=== PATIENT | male | born 1965 | race Caucasian/White ===

== ENCOUNTER 2017-08-18 00:35 | Inpatient (IN) | payer OTHER ==
[~2017-08-18] VITALS: Ht 182.9 cm; Wt 85.8 kg
[2017-08-18] VITALS (9 sets, daily range): BP systolic 107–126; BP diastolic 65–72; PULSE 79–104; RESP 14–18; TEMP 97.3–103.1; O2SAT 93–97
[~2017-08-18 00:35] MED LIST: ONDANSETRON HCL 4 MG/2 ML VIAL IV PUSH PRN; SODIUM CHLORIDE 0.9% FLUSH 10 ML FLUSH IV FLUSH PRN
[2017-08-18] MEDS: MORPHINE SULFATE 4 MG/ML INJ IV PUSH PRN ×2 (01:20→05:25)
[2017-08-18] MEDS: SODIUM CHLOR 0.9% 1000 ML INJ 1,000 ML IV SCH ×4 (01:21→21:42)
[2017-08-18] MEDS ORDERED: LACTATED RINGER'S 1000 ML IV PRN (01:30)
[2017-08-18] MEDS ORDERED: INSULIN HUMAN REGULAR 1,000 UNITS/10 ML VIAL SQ PRN (01:30)
[2017-08-18] MEDS ORDERED: METOPROLOL TARTRATE 25 MG TAB PO PRN (01:30)
[2017-08-18] MEDS ORDERED: CHLORHEXIDINE GLUCONATE 2 % 1 PACK (2 CLOTHS) TOPICAL PRN (01:30)
[2017-08-18] MEDS ORDERED: SODIUM CHLORID 0.9% 500 ML IV PRN (01:30)
[2017-08-18] MEDS ORDERED: POVIDONE IODINE 5% (ANTISEPSIS KIT) 4 APPLICATIONS EACH NARE PRN (01:30)
[2017-08-18] MEDS: PIPERACIL-TAZO 3.375 GM PREMIX 50 ML IV SCH ×4 (05:25→23:18)
--- NOTE | 2017-08-18 07:09 | HHI.HP ---
HPI Service General surgery Primary Care Physician Non-Staff Admission Diagnosis Appendicitis Chief Complaint: Abdominal pain History of Present Illness The patient is a 51-year-old male who presents with acute onset of lower abdominal pain starting at 6 AM yesterday when he awoke. The pain is worse on the right lower quadrant than the left. He denies nausea or vomiting. He felt febrile at home and he had a temperature of 101 last night. No diarrhea. He reports a history of an appendectomy 10 years ago for appendicitis. He was evaluated in the emergency department and out of the and noted to have right lower quadrant tenderness associated with leukocytosis and a CT scan of the abdomen and pelvis showing acute appendicitis. Review of Systems Constitutional: COMPLAINS OF: Fever, Chills Eyes: DENIES: Eye inflammation, Eye pain Respiratory: DENIES: Cough, Shortness of breath Cardiovascular: DENIES: Chest pain, Palpitations Gastrointestinal: COMPLAINS OF: Abdominal pain, DENIES: Nausea, Vomiting Musculoskeletal: DENIES: Back pain, Neck pain Integumentary: DENIES: Pruritus, Rash Neurologic: DENIES: Paresthesias, Seizures Past Family Social History Past Medical History None Past Surgical History Laparoscopic appendectomy Reported Medications Reported Meds & Active Scripts Active No Active Prescriptions or Reported Medications Allergies: Coded Allergies: No Known Allergies (Unverified , 08/17/17) Active Ordered Medications Current Medications Medications (Trade) Dose Ordered Sig/Fam Route Start Time Stop Time Status Last Admin Sodium Chloride 1,000 ml @ 100 mls/hr Q10H IV 08/18/17 01:00 08/18/17 01:21 (NS Flush) 2 ml UNSCH PRN IV FLUSH 08/17/17 23:15 (NS Flush) 2 ml BID IV FLUSH 08/18/17 09:00 Piperacillin Sod/ Tazobactam Sod 50 ml @ 100 mls/hr Q6H IV 08/18/17 05:00 08/18/17 05:25 (Zofran Inj) 4 mg Q6H PRN IV PUSH 08/17/17 23:15 08/18/17 02:16 (Morphine Inj) 4 mg Q3H PRN IV PUSH 08/17/17 23:15 08/18/17 05:25 Lactated Ringer's 1,000 ml @ 30 mls/hr Q24H PRN IV 08/18/17 01:30 08/21/17 01:29 Sodium Chloride 500 ml @ 30 mls/hr [id number] PRN IV 08/18/17 01:30 08/21/17 01:29 (Lopressor) 25 mg DRAMATIC TEACHER PRN PO 08/18/17 01:30 08/21/17 01:29 (Betadine 5% Antisepsis Kit) 1 applic DRAMATIC TEACHER PRN EACH NARE 08/18/17 01:30 08/21/17 01:29 (Chlorhexidine 2% Cloth) 3 pack DRAMATIC TEACHER PRN TOPICAL 08/18/17 01:30 08/21/17 01:29 (NovoLIN R INJ) See Protocol Table ... DRAMATIC TEACHER PRN SQ 08/18/17 01:30 08/21/17 01:29 (Flu (Quadrivalent) Vaccine Inj) 0.5 ml ONCE ONCE IM 08/19/17 10:00 08/19/17 10:01 Family History Noncontributory Social History Occasional alcohol use. No tobacco or drug use. Physical Exam Vital Signs Vital Signs Date Time Temp Pulse Resp B/P (MAP) Pulse Ox O2 Delivery O2 Flow Rate FiO2 08/18/17 04:00 101.0 86 17 125/70 (88) 96 08/18/17 00:43 100.0 80 17 121/72 (88) 97 Physical Exam GENERAL: Awake and alert. No acute distress. Cooperative. HEAD: Normocephalic. Atraumatic. CHEST: Lungs clear to auscultation bilaterally with no wheezing or rhonchi. No respiratory distress. CARDIOVASCULAR: Regular rate and rhythm. ABDOMEN: Well-healed port site scars. Nondistended. Soft. Moderate tenderness in the right lower quadrant at McBurney's point with positive rebound. EXTREMITIES: No cyanosis or edema. SKIN: Warm, dry, nonjaundiced. Laboratory Please see labs from [place] emergency department visit. Imaging Please see imaging from [place] emergency department visit. I reviewed the CT images myself. Caprini VTE Risk Assessment Caprini VTE Risk Assessment: No/Low Risk (score <= 1) Caprini Risk Assessment Model Point Value = 1 Point Value = 2 Point Value = 3 Point Value = 5 Age 41-60 Minor surgery BMI > 25 kg/m2 Swollen legs Varicose veins or History of unexplained or recurrent spontaneous Oral contraceptives or hormone replacement Sepsis (< 1 month) Serious lung disease, including pneumonia (< 1 month) Abnormal pulmonary function Acute myocardial infarction Congestive heart failure (< 1 month) History of inflammatory bowel disease Medical patient at bed rest Age 61-74 Arthroscopic surgery Major open surgery (> 45 min) Laparoscopic surgery (> 45 min) Malignancy Confined to bed (> 72 hours) Immobilizing plaster cast Central venous access Age >= 75 History of VTE Family history of VTE Factor V Leiden Prothrombin [id number] Lupus anticoagulant Anticardiolipin antibodies Elevated serum homocysteine Heparin-induced thrombocytopenia Other congenital or acquired thrombophilia Stroke (< 1 month) Elective arthroplasty Hip, pelvis, or leg fracture Acute spinal cord injury (< 1 month) Prophylaxis Regimen Total Risk Factor Score Risk Level Prophylaxis Regimen 0-1 Low Early ambulation 2 Moderate Order ONE of the following: *Sequential Compression Device (SCD) *Heparin 5000 units SQ BID 3-4 Higher Order ONE of the following medications: *Heparin 5000 units SQ TID *Enoxaparin/Lovenox 40 mg SQ daily (WT < 150 kg, CrCl > 30 mL/min) *Enoxaparin/Lovenox 30 mg SQ daily (WT < 150 kg, CrCl > 10-29 mL/min) *Enoxaparin/Lovenox 30 mg SQ BID (WT < 150 kg, CrCl > 30 mL/min) AND/OR *Sequential Compression Device (SCD) 5 or more Highest Order ONE of the following medications: *Heparin 5000 units SQ TID (Preferred with Epidurals) *Enoxaparin/Lovenox 40 mg SQ daily (WT < 150 kg, CrCl > 30 mL/min) *Enoxaparin/Lovenox 30 mg SQ daily (WT < 150 kg, CrCl > 10-29 mL/min) *Enoxaparin/Lovenox 30 mg SQ BID (WT < 150 kg, CrCl > 30 mL/min) AND *Sequential Compression Device (SCD) Assessment and Plan Assessment and Plan 51-year-old male who has evaluation consistent with appendicitis. He has had a previous appendectomy. I think he may have a stump appendicitis. Another possibility is Meckel's diverticulitis. I discussed both of these possibilities with him. I recommend to proceed to the operating room for laparoscopy and treatment of appendicitis or Meckel's. I discussed surgery in detail with the patient and he understands and desires to proceed. Tommy,Sabino STEINER Aug 18, 2017 07:09
--- NOTE | 2017-08-18 07:09 | HHI.HP ---
HPI Service General surgery Primary Care Physician Non-Staff Admission Diagnosis Appendicitis Chief Complaint: Abdominal pain History of Present Illness The patient is a 51-year-old male who presents with acute onset of lower abdominal pain starting at 6 AM yesterday when he awoke. The pain is worse on the right lower quadrant than the left. He denies nausea or vomiting. He felt febrile at home and he had a temperature of 101 last night. No diarrhea. He reports a history of an appendectomy 10 years ago for appendicitis. He was evaluated in the emergency department and out of the and noted to have right lower quadrant tenderness associated with leukocytosis and a CT scan of the abdomen and pelvis showing acute appendicitis. Review of Systems Constitutional: COMPLAINS OF: Fever, Chills Eyes: DENIES: Eye inflammation, Eye pain Respiratory: DENIES: Cough, Shortness of breath Cardiovascular: DENIES: Chest pain, Palpitations Gastrointestinal: COMPLAINS OF: Abdominal pain, DENIES: Nausea, Vomiting Musculoskeletal: DENIES: Back pain, Neck pain Integumentary: DENIES: Pruritus, Rash Neurologic: DENIES: Paresthesias, Seizures Past Family Social History Past Medical History None Past Surgical History Laparoscopic appendectomy Reported Medications Reported Meds & Active Scripts Active No Active Prescriptions or Reported Medications Allergies: Coded Allergies: No Known Allergies (Unverified , 08/17/17) Active Ordered Medications Current Medications Medications (Trade) Dose Ordered Sig/Fam Route Start Time Stop Time Status Last Admin Sodium Chloride 1,000 ml @ 100 mls/hr Q10H IV 08/18/17 01:00 08/18/17 01:21 (NS Flush) 2 ml UNSCH PRN IV FLUSH 08/17/17 23:15 (NS Flush) 2 ml BID IV FLUSH 08/18/17 09:00 Piperacillin Sod/ Tazobactam Sod 50 ml @ 100 mls/hr Q6H IV 08/18/17 05:00 08/18/17 05:25 (Zofran Inj) 4 mg Q6H PRN IV PUSH 08/17/17 23:15 08/18/17 02:16 (Morphine Inj) 4 mg Q3H PRN IV PUSH 08/17/17 23:15 08/18/17 05:25 Lactated Ringer's 1,000 ml @ 30 mls/hr Q24H PRN IV 08/18/17 01:30 08/21/17 01:29 Sodium Chloride 500 ml @ 30 mls/hr [id number] PRN IV 08/18/17 01:30 08/21/17 01:29 (Lopressor) 25 mg WAGE AND SALARY SPECIALIST PRN PO 08/18/17 01:30 08/21/17 01:29 (Betadine 5% Antisepsis Kit) 1 applic WAGE [employer] SALARY SPECIALIST PRN EACH NARE 08/18/17 01:30 08/21/17 01:29 (Chlorhexidine 2% Cloth) 3 pack WAGE [employer] SALARY SPECIALIST PRN TOPICAL 08/18/17 01:30 08/21/17 01:29 (NovoLIN R INJ) See Protocol Table ... WAGE AND SALARY SPECIALIST PRN SQ 08/18/17 01:30 08/21/17 01:29 (Flu (Quadrivalent) Vaccine Inj) 0.5 ml ONCE ONCE IM 08/19/17 10:00 08/19/17 10:01 Family History Noncontributory Social History Occasional alcohol use. No tobacco or drug use. Physical Exam Vital Signs Vital Signs Date Time Temp Pulse Resp B/P (MAP) Pulse Ox O2 Delivery O2 Flow Rate FiO2 08/18/17 04:00 101.0 86 17 125/70 (88) 96 08/18/17 00:43 100.0 80 17 121/72 (88) 97 Physical Exam GENERAL: Awake and alert. No acute distress. Cooperative. HEAD: Normocephalic. Atraumatic. CHEST: Lungs clear to auscultation bilaterally with no wheezing or rhonchi. No respiratory distress. CARDIOVASCULAR: Regular rate and rhythm. ABDOMEN: Well-healed port site scars. Nondistended. Soft. Moderate tenderness in the right lower quadrant at McBurney's point with positive rebound. EXTREMITIES: No cyanosis or edema. SKIN: Warm, dry, nonjaundiced. Laboratory Please see labs from [place] emergency department visit. Imaging Please see imaging from [place] emergency department visit. I reviewed the CT images myself. Caprini VTE Risk Assessment Caprini VTE Risk Assessment: No/Low Risk (score <= 1) Caprini Risk Assessment Model Point Value = 1 Point Value = 2 Point Value = 3 Point Value = 5 Age 41-60 Minor surgery BMI > 25 kg/m2 Swollen legs Varicose veins or History of unexplained or recurrent spontaneous Oral contraceptives or hormone replacement Sepsis (< 1 month) Serious lung disease, including pneumonia (< 1 month) Abnormal pulmonary function Acute myocardial infarction Congestive heart failure (< 1 month) History of inflammatory bowel disease Medical patient at bed rest Age 61-74 Arthroscopic surgery Major open surgery (> 45 min) Laparoscopic surgery (> 45 min) Malignancy Confined to bed (> 72 hours) Immobilizing plaster cast Central venous access Age >= 75 History of VTE Family history of VTE Factor V Leiden Prothrombin [id number] Lupus anticoagulant Anticardiolipin antibodies Elevated serum homocysteine Heparin-induced thrombocytopenia Other congenital or acquired thrombophilia Stroke (< 1 month) Elective arthroplasty Hip, pelvis, or leg fracture Acute spinal cord injury (< 1 month) Prophylaxis Regimen Total Risk Factor Score Risk Level Prophylaxis Regimen 0-1 Low Early ambulation 2 Moderate Order ONE of the following: *Sequential Compression Device (SCD) *Heparin 5000 units SQ BID 3-4 Higher Order ONE of the following medications: *Heparin 5000 units SQ TID *Enoxaparin/Lovenox 40 mg SQ daily (WT < 150 kg, CrCl > 30 mL/min) *Enoxaparin/Lovenox 30 mg SQ daily (WT < 150 kg, CrCl > 10-29 mL/min) *Enoxaparin/Lovenox 30 mg SQ BID (WT < 150 kg, CrCl > 30 mL/min) AND/OR *Sequential Compression Device (SCD) 5 or more Highest Order ONE of the following medications: *Heparin 5000 units SQ TID (Preferred with Epidurals) *Enoxaparin/Lovenox 40 mg SQ daily (WT < 150 kg, CrCl > 30 mL/min) *Enoxaparin/Lovenox 30 mg SQ daily (WT < 150 kg, CrCl > 10-29 mL/min) *Enoxaparin/Lovenox 30 mg SQ BID (WT < 150 kg, CrCl > 30 mL/min) AND *Sequential Compression Device (SCD) Assessment and Plan Assessment and Plan 51-year-old male who has evaluation consistent with appendicitis. He has had a previous appendectomy. I think he may have a stump appendicitis. Another possibility is Meckel's diverticulitis. I discussed both of these possibilities with him. I recommend to proceed to the operating room for laparoscopy and treatment of appendicitis or Meckel's. I discussed surgery in detail with the patient and he understands and desires to proceed. Tommy,Sabino STEINER Aug 18, 2017 07:09
--- NOTE | 2017-08-18 07:09 | HHI.HP ---
HPI Service General surgery Primary Care Physician Non-Staff Admission Diagnosis Appendicitis Chief Complaint: Abdominal pain History of Present Illness The patient is a 51-year-old male who presents with acute onset of lower abdominal pain starting at 6 AM yesterday when he awoke. The pain is worse on the right lower quadrant than the left. He denies nausea or vomiting. He felt febrile at home and he had a temperature of 101 last night. No diarrhea. He reports a history of an appendectomy 10 years ago for appendicitis. He was evaluated in the emergency department and out of the and noted to have right lower quadrant tenderness associated with leukocytosis and a CT scan of the abdomen and pelvis showing acute appendicitis. Review of Systems Constitutional: COMPLAINS OF: Fever, Chills Eyes: DENIES: Eye inflammation, Eye pain Respiratory: DENIES: Cough, Shortness of breath Cardiovascular: DENIES: Chest pain, Palpitations Gastrointestinal: COMPLAINS OF: Abdominal pain, DENIES: Nausea, Vomiting Musculoskeletal: DENIES: Back pain, Neck pain Integumentary: DENIES: Pruritus, Rash Neurologic: DENIES: Paresthesias, Seizures Past Family Social History Past Medical History None Past Surgical History Laparoscopic appendectomy Reported Medications Reported Meds & Active Scripts Active No Active Prescriptions or Reported Medications Allergies: Coded Allergies: No Known Allergies (Unverified , 08/17/17) Active Ordered Medications Current Medications Medications (Trade) Dose Ordered Sig/Fam Route Start Time Stop Time Status Last Admin Sodium Chloride 1,000 ml @ 100 mls/hr Q10H IV 08/18/17 01:00 08/18/17 01:21 (NS Flush) 2 ml UNSCH PRN IV FLUSH 08/17/17 23:15 (NS Flush) 2 ml BID IV FLUSH 08/18/17 09:00 Piperacillin Sod/ Tazobactam Sod 50 ml @ 100 mls/hr Q6H IV 08/18/17 05:00 08/18/17 05:25 (Zofran Inj) 4 mg Q6H PRN IV PUSH 08/17/17 23:15 08/18/17 02:16 (Morphine Inj) 4 mg Q3H PRN IV PUSH 08/17/17 23:15 08/18/17 05:25 Lactated Ringer's 1,000 ml @ 30 mls/hr Q24H PRN IV 08/18/17 01:30 08/21/17 01:29 Sodium Chloride 500 ml @ 30 mls/hr [id number] PRN IV 08/18/17 01:30 08/21/17 01:29 (Lopressor) 25 mg BOTTLE WASHER PRN PO 08/18/17 01:30 08/21/17 01:29 (Betadine 5% Antisepsis Kit) 1 applic BOTTLE WASHER PRN EACH NARE 08/18/17 01:30 08/21/17 01:29 (Chlorhexidine 2% Cloth) 3 pack BOTTLE WASHER PRN TOPICAL 08/18/17 01:30 08/21/17 01:29 (NovoLIN R INJ) See Protocol Table ... BOTTLE WASHER PRN SQ 08/18/17 01:30 08/21/17 01:29 (Flu (Quadrivalent) Vaccine Inj) 0.5 ml ONCE ONCE IM 08/19/17 10:00 08/19/17 10:01 Family History Noncontributory Social History Occasional alcohol use. No tobacco or drug use. Physical Exam Vital Signs Vital Signs Date Time Temp Pulse Resp B/P (MAP) Pulse Ox O2 Delivery O2 Flow Rate FiO2 08/18/17 04:00 101.0 86 17 125/70 (88) 96 08/18/17 00:43 100.0 80 17 121/72 (88) 97 Physical Exam GENERAL: Awake and alert. No acute distress. Cooperative. HEAD: Normocephalic. Atraumatic. CHEST: Lungs clear to auscultation bilaterally with no wheezing or rhonchi. No respiratory distress. CARDIOVASCULAR: Regular rate and rhythm. ABDOMEN: Well-healed port site scars. Nondistended. Soft. Moderate tenderness in the right lower quadrant at McBurney's point with positive rebound. EXTREMITIES: No cyanosis or edema. SKIN: Warm, dry, nonjaundiced. Laboratory Please see labs from [place] emergency department visit. Imaging Please see imaging from [place] emergency department visit. I reviewed the CT images myself. Caprini VTE Risk Assessment Caprini VTE Risk Assessment: No/Low Risk (score <= 1) Caprini Risk Assessment Model Point Value = 1 Point Value = 2 Point Value = 3 Point Value = 5 Age 41-60 Minor surgery BMI > 25 kg/m2 Swollen legs Varicose veins or History of unexplained or recurrent spontaneous Oral contraceptives or hormone replacement Sepsis (< 1 month) Serious lung disease, including pneumonia (< 1 month) Abnormal pulmonary function Acute myocardial infarction Congestive heart failure (< 1 month) History of inflammatory bowel disease Medical patient at bed rest Age 61-74 Arthroscopic surgery Major open surgery (> 45 min) Laparoscopic surgery (> 45 min) Malignancy Confined to bed (> 72 hours) Immobilizing plaster cast Central venous access Age >= 75 History of VTE Family history of VTE Factor V Leiden Prothrombin [id number] Lupus anticoagulant Anticardiolipin antibodies Elevated serum homocysteine Heparin-induced thrombocytopenia Other congenital or acquired thrombophilia Stroke (< 1 month) Elective arthroplasty Hip, pelvis, or leg fracture Acute spinal cord injury (< 1 month) Prophylaxis Regimen Total Risk Factor Score Risk Level Prophylaxis Regimen 0-1 Low Early ambulation 2 Moderate Order ONE of the following: *Sequential Compression Device (SCD) *Heparin 5000 units SQ BID 3-4 Higher Order ONE of the following medications: *Heparin 5000 units SQ TID *Enoxaparin/Lovenox 40 mg SQ daily (WT < 150 kg, CrCl > 30 mL/min) *Enoxaparin/Lovenox 30 mg SQ daily (WT < 150 kg, CrCl > 10-29 mL/min) *Enoxaparin/Lovenox 30 mg SQ BID (WT < 150 kg, CrCl > 30 mL/min) AND/OR *Sequential Compression Device (SCD) 5 or more Highest Order ONE of the following medications: *Heparin 5000 units SQ TID (Preferred with Epidurals) *Enoxaparin/Lovenox 40 mg SQ daily (WT < 150 kg, CrCl > 30 mL/min) *Enoxaparin/Lovenox 30 mg SQ daily (WT < 150 kg, CrCl > 10-29 mL/min) *Enoxaparin/Lovenox 30 mg SQ BID (WT < 150 kg, CrCl > 30 mL/min) AND *Sequential Compression Device (SCD) Assessment and Plan Assessment and Plan 51-year-old male who has evaluation consistent with appendicitis. He has had a previous appendectomy. I think he may have a stump appendicitis. Another possibility is Meckel's diverticulitis. I discussed both of these possibilities with him. I recommend to proceed to the operating room for laparoscopy and treatment of appendicitis or Meckel's. I discussed surgery in detail with the patient and he understands and desires to proceed. Tommy,Sabino STEINER Aug 18, 2017 07:09
[2017-08-18] MEDS ORDERED: BUPIVACAINE/EPINEPHRINE 0.5% 50 ML VIAL ONE (08:52)
[2017-08-18] MEDS: SODIUM CHLORIDE 0.9% FLUSH 10 ML FLUSH IV FLUSH SCH ×2 (09:00→20:35)
[2017-08-18] MEDS ORDERED: ACETAMINOPHEN 1000 MG/100 ML VIAL IV ONE (09:45)
[2017-08-18] MEDS ORDERED: ACETAMINOPHEN 1000 MG/100 ML 0 ML IV ONE (10:33)
[2017-08-18] MEDS ORDERED: ACETAMINOPHEN/HYDROcodone 325 MG/5 MG TAB PO PRN (12:45)
[2017-08-18] MEDS ORDERED: DO NOT ADM ANY ANTICOAGULANT DRUGS PRN (12:58)
--- NOTE | 2017-08-18 13:16 | EKG ---
Date Performed: 08/18/2017 Time Performed: 02:02:42 PTAGE: 51 years EKG: Sinus rhythm Normal ECG NO PREVIOUS TRACING DOCTOR: Renzo Cancino Interpretating Date/Time 08/18/2017 13:14:40
--- NOTE | 2017-08-18 13:16 | EKG ---
Date Performed: 08/18/2017 Time Performed: 02:02:42 PTAGE: 51 years EKG: Sinus rhythm Normal ECG NO PREVIOUS TRACING DOCTOR: Renzo Cancino Interpretating Date/Time 08/18/2017 13:14:40
--- NOTE | 2017-08-18 13:16 | EKG ---
Date Performed: 08/18/2017 Time Performed: 02:02:42 PTAGE: 51 years EKG: Sinus rhythm Normal ECG NO PREVIOUS TRACING DOCTOR: Renzo Cancino Interpretating Date/Time 08/18/2017 13:14:40
[2017-08-18] MEDS: ACETAMINOPHEN/HYDROcodone 325 MG/5 MG TAB PO PRN (16:13)
[2017-08-19] MEDS: ACETAMINOPHEN/HYDROcodone 325 MG/5 MG TAB PO PRN ×3 (02:14→13:25)
[2017-08-19 03:15] VITALS: BP 107/64; PULSE 65; RESP 18; TEMP 97.9; O2SAT 96
[2017-08-19] MEDS: PIPERACIL-TAZO 3.375 GM PREMIX 50 ML IV SCH ×2 (05:13→13:25)
[2017-08-19 08:00] VITALS: BP 100/58; PULSE 62; RESP 18; TEMP 97.9; O2SAT 97
[2017-08-19] MEDS: SODIUM CHLORIDE 0.9% FLUSH 10 ML FLUSH IV FLUSH SCH (08:38)
--- NOTE | 2017-08-19 08:58 | PD.OP ---
cc: Sabino Sanders MD Operative Report Date of Surgery: Aug 19, 2017 Preoperative Diagnosis: (1) Recurrent appendicitis (2) History of appendectomy (3) Appendicitis, acute Postoperative Diagnosis: (1) Appendicitis with perforation (2) Recurrent appendicitis (3) History of appendectomy Procedure: Laparoscopic appendectomy Anesthesia: GRETTA Surgeon: Sabino Sanders Director Public Service(s): Staff Operation and Findings: EBL: 5 cc Complications: None apparent Operative findings: The patient had a long appendiceal stump which was acutely inflamed and gangrenous with perforation into the retroperitoneum. It was in the retro-peritoneum posterior to the terminal ileum. Serosal injury required oversewing with interrupted 3-0 Vicryl sutures. Procedure in detail: The patient was taken to the operating room placed in the supine position with left arm tucked. General endotracheal anesthesia was induced and the abdomen was prepped and draped in usual sterile fashion. Surgical timeout was performed to verify correct patient procedure and site. Perioperative antibiotics were administered as necessary. Local anesthetic was injected in the skin and subcutaneous tissue at the left lower abdomen and a 5 mm incision made. Using the 5 mm Optiview trocar with laparoscope the abdomen was directly entered. Was then insufflated to 15 mmHg with CO2 gas which the patient tolerated well. The patient was then placed in Trendelenburg position and turned slightly to the left. A 12 mm port was placed under laparoscopic visualization in the lower mid abdomen abdomen and a 5 mm port in the epigastrium. Attention was turned to the right lower quadrant and there was noted to be edema of the cecum a small amount of exudative material near the terminal ileum. The appendix was not immediately identifiable. The cecum was from the lateral abdominal wall using the Harmonic scalpel. The terminal ileum and the base of the cecum was carefully rotated medially with blunt dissection and a multi-centimeter appendiceal stump with acute inflammation and perforation into the retroperitoneum was identified. A fourth port was placed in the left lateral abdomen for assistance with bowel manipulation. Careful further dissection with harmonic scalpel and blunt dissection was used to free the appendix from surrounding structures and the mesoappendix was taken down with the Harmonic scalpel. The base of the appendix was seen entering the cecum and a #1 PDS Endoloop was placed. Due to the gangrenous and perforated nature of the appendix it had been removed basically in pieces. The appendix and 2 small stool balls were removed from the abdominal cavity in the Endo Catch bag. The loop was in place with no leakage from the appendiceal stump. The right lower quadrant was copiously irrigated in the pelvis and right upper quadrant were also irrigated. During dissection an area of the terminal ileum had a serosal tear. This was repaired with 4 simple interrupted 3-0 Vicryl sutures laparoscopically. At this point a drain was placed through the left lower abdominal incision and positioned in the right lower quadrant. It was sutured in place with 3-0 nylon suture. The fascia at the 12 mm port site was closed with a single 0 Vicryl suture. Skin closed with subcuticular Monocryl as well as Dermabond. The patient tolerated the procedure well was extubated and taken to PACU in stable condition. Sabino Sanders MD Aug 19, 2017 08:58
[2017-08-19 09:52] VITALS: O2SAT 96
[2017-08-19] MEDS ORDERED: INFLUENZA VIRUS VACCINE (QUADRIVALENT) 0.5 ML SYR IM ONE (10:00)
--- NOTE | 2017-08-19 11:29 | HHI.DS ---
Discharge Summary Admission Date Aug 18, 2017 at 12:47 Discharge Date: Aug 19, 2017 Admitting Diagnosis (1) Appendicitis with perforation ICD Codes: K35.2 - Acute appendicitis with generalized peritonitis Brief History The patient is a 51-year-old male who presents with acute onset of lower abdominal pain starting at 6 AM yesterday when he awoke. The pain is worse on the right lower quadrant than the left. He denies nausea or vomiting. He felt febrile at home and he had a temperature of 101 last night. No diarrhea. He reports a history of an appendectomy 10 years ago for appendicitis. He was evaluated in the emergency department and out of the and noted to have right lower quadrant tenderness associated with leukocytosis and a CT scan of the abdomen and pelvis showing acute appendicitis. PE at Discharge Abd: soft, nondistended, inc c/d/i, haroldo ss output Hospital Course POst op he is doing very well. He is tolerating liquids and has no nausea. Pain is controlled. He desires discharge. Pt Condition on Discharge: Good Discharge Disposition: Discharge Home Discharge Instructions DIET: Follow Instructions for: As Tolerated, No Restrictions Activities you can perform: See Additionl Instruction Other Activity Instructions: Ok to shower. Avoid heavy lifting. No driving for 3-5 days or if on narcotic pain meds. Follow up Referrals: Surgical - 08/25/17 with Sabino Sanders MD New Medications: Amoxicillin-Clavulanate (Augmentin) 875-125 Mg Tab 1 TAB PO BID for Infection, #14 TAB 0 Refills Hydrocodone-Acetaminophen ([place]) 5-325 mg Tab 1-2 TAB PO Q6H PRN for PAIN, #30 TAB 0 Refills Sabino Sanders MD Aug 19, 2017 11:29
[2017-08-19] MEDS ORDERED: AUGM875T3 PO (11:30)
[2017-08-19] MEDS ORDERED: NORC5TAB PO (11:30)
[2017-08-19 12:00] VITALS: BP 112/73; PULSE 57; RESP 18; TEMP 97.3; O2SAT 96
[2017-08-19 16:00] VITALS: BP 116/73; PULSE 80; RESP 18; TEMP 98.6; O2SAT 96
== END 2017-08-19 17:34 | disposition home or self-care (01) | DRG 340 ==
LOC: HOR 00:35 → N06B 00:45 → OBSVTOIN 12:47
PROVIDERS: ADMIT Surgery; ATTEND Surgery
PROC: 0DTJ4ZZ Resection of Appendix, Percutaneous Endoscopic Approach (ICD-10-PCS; principal; 2017-08-19)
DX: K35.2 Acute appendicitis with generalized peritonitis (principal)
CPT/HCPCS: 88304; 90686; 93005; J0131; J2270; J2405; J2543; J7030; Q2038